=== PATIENT | female | born 1995 | race Asian ===

== ENCOUNTER 2017-11-27 00:09 | Emergency (ER) | payer OTHER ==
[~2017-11-27] VITALS: Ht 162.6 cm; Wt 57.8 kg
[~2017-11-27 00:09] MED LIST: DIPH25CA5 PO; EPP3/2 IM
[2017-11-27 00:21] VITALS: TEMP 36.4; Ht 162.6 cm; Wt 57.8 kg
--- NOTE | 2017-11-27 00:49 | EMERGENCY ROOM VISIT NOTE ---
History Report prepared by Leora: Anthony Henderson Under the Supervision of: Dr. Saundra Go D.O. First contact with patient: 00:31 Chief Complaint: URINARY SYMPTOMS Stated Complaint: VAGINAL BLEEDING,CONSTANT NEED TO USE BATHROOM Nursing Triage Summary: Patient reports blood in her urine since Saturday with pressure and frequency. History of Present Illness The patient is a 22 year old female who presents to the Emergency Room with complaints of persistent painful urination beginning two days ago. The patient states that she also started having blood in her urine today, but she notes that she does not have her period. She notes that she feels as though her bladder is inflamed. She also complains of an increased urgency of urination. She denies any leg cramping/swelling, nausea, vomiting, fever, chills, and back pain. She reports that she does not have any chronic problems and does not have a history of UTIs. The patient states that she does not believe that she is . She notes that her last period was a week and a half ago. Source of History: patient Onset: two days ago Position: other (urethra) Quality: other (painful urination) Timing: other (persistent) Associated Symptoms: No fevers, No chills, No nausea, No vomiting, No back pain Note: The patient also complains of blood in her urine and of an increased urgency of urination. She also denies any leg cramping/swelling. Review of Systems See HPI for pertinent positives & negatives. A total of 10 systems reviewed and were otherwise negative. Past Medical & Surgical Medical Problems: (1) No chronic problems Family History No pertinent family history stated. Social History Smoking Status: Never Smoker Drug Use: none Housing Status: lives with roommate Occupation Status: [email or web address] student Current/Historical Medications Scheduled Nitrofurantoin Monohyd Macro (Macrobid), 100 MG PO BID Phenazopyridine Hcl (Pyridium), 1 TAB PO TID Scheduled PRN Diphenhydramine Hcl (Benadryl), 25 MG PO Q4H PRN for Allergic Reaction Allergies Coded Allergies: Benzoyl Peroxide (Verified Allergy, Intermediate, facial swelling, 11/27/17 ) Physical Exam Vital Signs Date Time Temp Pulse Resp B/P (MAP) Pulse Ox O2 Delivery O2 Flow Rate FiO2 11/27/17 02:02 86 18 118/65 99 11/27/17 00:21 36.4 81 20 118/79 100 Room Air Physical Exam HEENT: Head - normocephalic and atraumatic Pupils are equal, round, and reactive to light. Extraocular eye muscles are intact, and sclera are anicteric. Nose - moist nasal mucosa without discharge. Mouth - moist buccal mucosa. Oropharynx is nonerythematous and there is no tonsillar exudate or edema noted. Neck: Supple; no JVD, nuchal rigidity, cervical lymphadenopathy. Heart: Regular rate and rhythm. There is a normal S1 and S2 with no murmurs, clicks, or gallops appreciated. Lungs: Clear to auscultation bilaterally with no wheezes, rales, or rhonchi. Abdomen: Soft, nondistended, with good bowel sounds. There are no palpable pulsatile masses or hepatosplenomegaly. There is no guarding, rigidity, or rebound noted. Tenderness to palpation in the suprapubic region. Extremities: No evidence of cyanosis, clubbing, or edema. There are easily palpable peripheral pulses. Skin: warm and dry with good turgor and no rashes. Medical Decision & Procedures Laboratory Results Test 11/27/17 00:50 Urine Color YELLOW Urine Appearance CLOUDY (CLEAR) Urine pH 6.0 (4.5-7.5) Urine Specific [place] 1.023 (1.000-1.030) Urine Protein 2+ (NEG) Urine Glucose (UA) NEG (NEG) Urine Ketones TRACE (NEG) Urine Occult Blood 3+ (NEG) Urine Nitrite NEG (NEG) Urine Bilirubin NEG (NEG) Urine Urobilinogen NEG (NEG) Urine Leukocyte Esterase LARGE (NEG) Urine WBC (Auto) >30 /hpf (0-5) Urine RBC (Auto) >30 /hpf (0-4) Urine Hyaline Casts (Auto) 1-5 /lpf (0-5) Urine Epithelial Cells (Auto) 10-20 /lpf (0-5) Urine Bacteria (Auto) NEG (NEG) Laboratory results per my review. Medications Administered Medications (Trade) Dose Ordered Sig/Edgardo Route Start Time Stop Time Status Last Admin Dose Admin Phenazopyridine HCl (Pyridium Tab) 200 mg NOW STAT PO 11/27/17 01:47 11/27/17 01:49 DC 11/27/17 01:59 200 MG Nitrofurantoin (Macrobid Homepack 100MG) 1 homepack STK-MED ONCE .ROUTE 11/27/17 01:55 11/27/17 01:56 DC 11/27/17 01:59 1 HOMEPACK Procedure Medications Administered: Pyridium Tab 200mg PO, Nitrofurantoin 1 homepack PO, and Nitrofurantoin Macrocrystals 100mg PO ED Course 0042: Past medical records reviewed. The patient was evaluated in room B5. A complete history and physical exam was performed. A urine specimen was obtained. 0147: Pyridium Tab 200mg PO to take at home 0155: Nitrofurantoin 1 homepack PO 0137: I reevaluated and updated the patient. 0202: Upon reevaluation, the patient is stable. I discussed findings and results with her. She verbalized agreement of the treatment plan. The patient was discharged home. Medical Decision The patient is a 22 year old female who presents to the Emergency Room with complaints of persistent painful urination beginning two days ago. Differential diagnoses include: cystitis, pyelonephritis, UTI, and vaginal bleeding. Lab Results Show: Urine shows: trace ketones, 3+ blood, large leukocyte esterase, >30 RBCs, >30 WBCs, and negative bacteria. This is a 22-year-old female patient presents to the emergency department with urinary frequency, urgency and significant hematuria. Urinalysis is consistent with a urinary tract infection. Her presentation is consistent with hemorrhagic cystitis. The patient will take Pyridium over the next 2 days and Macrobid over the next 5 days. Her urine was sent for culture. The patient was encouraged to return to the emergency department if she developed worsening symptoms such as flank pain, vomiting, nausea, or fevers Medication Reconcilliation Current Medication List: was personally reviewed by me Blood Pressure Screening Patient's blood pressure: Normal blood pressure Blood pressure disposition: Did not require urgent referral Impression Primary Impression: Hemorrhagic cystitis Scribe Attestation The scribe's documentation has been prepared under my direction and personally reviewed by me in its entirety. I confirm that the note above accurately reflects all work, treatment, procedures, and medical decision making performed by me. Departure Information Dispostion Home / Self-Care Prescriptions Nitrofurantoin Monohyd Macro (MACROBID) 100 Mg Cap 100 MG PO BID, #9 CAP Prov: Saundra Go D.O. 11/27/17 Phenazopyridine Hcl (PYRIDIUM) 200 Mg Tab 1 TAB PO TID for 2 Days, #5 TAB Prov: Saundra Go D.O. 11/27/17 Referrals No Doctor, Assigned (PCP) Forms HOME CARE DOCUMENTATION FORM, IMPORTANT VISIT INFORMATION Patient Instructions My [facility] Additional Instructions Rest. take plenty of clear liquids Macrobid - 1 tab. every 12 hours for 5 days pyridium - 1 tab. every 8 hours for 2 days Return to the ER if you develop a fever, vomiting or worsening symptoms
[2017-11-27] MEDS ORDERED: PHENAZOPYRIDINE HCL 200 MG TAB PO STA (01:47)
[2017-11-27] MEDS ORDERED: NITR1CAP16 PO (01:51)
[2017-11-27] MEDS ORDERED: PHEN-775 PO (01:51)
[2017-11-27] MEDS ORDERED: MACROBID 100MG HOME PACK 1 EA VIAL ONE (01:55)
[2017-11-27] MEDS ORDERED: NITROFURANTOIN MONOHYDRATE 100 MG CAP PO ONE (02:00)
[2017-11-27 02:02] VITALS: BP 118/65; PULSE 86; O2SAT 99
== END 2017-11-27 01:59 | disposition home or self-care (01) ==
LOC: C.EDB 00:11
DX: N30.90 Cystitis, unspecified without hematuria (principal)

== ENCOUNTER 2017-12-01 12:52 | Emergency (ER) | payer OTHER ==
[~2017-12-01] VITALS: Ht 162.6 cm; Wt 57.8 kg
[~2017-12-01 12:52] MED LIST changes: -EPP3/2 IM; +NITR1CAP16 PO
[2017-12-01 13:05] VITALS: TEMP 37; Ht 162.6 cm; Wt 57.8 kg
[2017-12-01] MEDS ORDERED: BCPILLS PO (13:26)
[2017-12-01] MEDS ORDERED: CEPHALEXIN MONOHYDRATE 250 MG CAP PO ONE (13:45)
[2017-12-01] MEDS ORDERED: DEXAMETHASONE SOD INJ 4 MG/ML VIAL PO ONE (13:45)
--- NOTE | 2017-12-01 13:50 | EMERGENCY ROOM VISIT NOTE ---
History First contact with patient: 13:20 Chief Complaint: THROAT PAIN/INJURY Stated Complaint: RASH,THROAT HURTS,THROAT SWOLLEN History of Present Illness The patient is a 22 year old female who presents to the Emergency Room with complaints of an itchy rash that started yesterday. The patient also is complaining of a sore throat and difficulty swallowing that started yesterday. She denies any fever or chills. No shortness of breath. She tried 1 tab of Benadryl last night with no relief of her symptoms. The patient reports having very sensitive skin. She denies any new soaps, lotions or detergents. She is currently taking Macrobid for a recent diagnosis of a UTI. Her urinary symptoms have improved. Review of Systems 10 system review performed and negative unless noted in HPI or below Past Medical/Surgical History Medical Problems: (1) No chronic problems Social History Smoking Status: Never Smoker Drug Use: none Housing Status: lives with roommate Occupation Status: [employer] student Current/Historical Medications Scheduled Control Pills ( Control Pills), 1 TAB PO DAILY Cephalexin Monohydrate (Keflex), 500 MG PO QID Nitrofurantoin Monohyd Macro (Macrobid), 100 MG PO BID Physical Exam Vital Signs Date Time Temp Pulse Resp B/P (MAP) Pulse Ox O2 Delivery O2 Flow Rate FiO2 12/01/17 14:30 84 18 102/63 98 12/01/17 13:08 99 Room Air 12/01/17 13:05 37.0 90 16 102/61 98 Room Air Physical Exam VITALS: Vitals are noted on the nurse's note and reviewed by myself. Vital signs stable. GENERAL: 22-year-old female, in no acute distress, nondiaphoretic, well- developed well-nourished. SKIN: Blotchy, erythematous, slightly raised lesions noted to the right thigh, lateral aspect of the left knee and intermittently on the trunk. No involvement of the palms or soles. HEAD: Normocephalic atraumatic. EYES: . Conjunctivae without injection, sclerae without icterus. Extraocular movements intact. NOSE: No rhinorrhea noted. MOUTH: Mucous membranes moist. Tonsils are significantly enlarged, erythematous and with white exudate bilaterally. Uvula is midline. No involvement of the soft palate. No trismus. NECK: Supple without nuchal rigidity. Lymphadenopathy noted in the anterior cervical chain bilaterally.. Cervical spine is nontender. No JVD. HEART: Regular rate and rhythm without murmurs gallops or rubs. LUNGS: Clear to auscultation bilaterally without wheezes, rales or rhonchi. No accessory muscle use. ABDOMEN: Positive bowel sounds x 4.Soft, nontender, without organomegaly. No guarding or rebound tenderness. MUSCULOSKELETAL: No muscle atrophy, erythema, or edema noted. Full range of motion in all extremities. No tenderness to palpation. Normal gait. Strength 5/5 throughout. NEURO: Patient was alert and oriented to person place and time. Normal sensation to touch. No focal neurological deficits. Medical Decision & Procedures Medications Administered Medications (Trade) Dose Ordered Sig/Edgardo Route Start Time Stop Time Status Last Admin Dose Admin Cephalexin Monohydrate (Keflex Cap) 500 mg NOW ONCE PO 12/01/17 13:45 12/01/17 13:46 DC 12/01/17 13:44 500 MG Dexamethasone Sodium Phosphate (Decadron Inj) 10 mg NOW ONCE PO 12/01/17 13:45 12/01/17 13:46 DC 12/01/17 13:45 10 MG ED Course The patient was seen and examined She was given 1 dose of Keflex She was also medicated with Decadron 10 mg p.o. A strep culture was reviewed The patient was reassessed and resting comfortably. We discussed her workup. She voiced understanding, was comfortable being discharged home. Discharge instructions were reviewed, and she was discharged in good condition Medical Decision Differential diagnosis: Bacterial versus viral tonsillitis such as strep or mono , allergic reaction to antibiotic versus other source, anaphylaxis, angioedema This patient is a 22-year-old female that presents to the emergency department with an itchy rash and throat pain. On exam, she has an allergic reaction. It is minor. No signs of angioedema or anaphylaxis. The patient's tonsils are significantly inflamed with exudate. She is currently taking Macrobid for UTI. It is unclear if her rash is due to the Macrobid or something else; therefore , I will discontinue the Macrobid and start her on Keflex. This should be adequate coverage for her UTI (which is growing pansensitive E. coli) and strep pharyngitis. The patient was encouraged to take Benadryl. She was treated with Decadron in the emergency department, which should help the rash and throat pain. She will follow-up with [facility] next week for recheck, was cautioned on signs for which to return to the emergency department. This chart was completed in part utilizing [employer] Speech Voice Recognition software. Attempts were made to minimize the grammatical errors, random word insertions, pronoun errors and incomplete sentences. Any formal questions or concerns about the content, text or information contained within the body of this dictation should be directly addressed to the provider for clarification. Medication Reconcilliation Current Medication List: was personally reviewed by me Blood Pressure Screening Patient's blood pressure: Normal blood pressure Impression Primary Impression: Acute bacterial tonsillitis Departure Information Dispostion Home / Self-Care Condition GOOD Prescriptions Cephalexin Monohydrate (Keflex) 500 Mg Cap 500 MG PO QID for 7 Days, #28 CAP Prov: Shira Gates PA-C 12/01/17 Referrals No Doctor, Assigned (PCP) Patient Instructions My [facility] Additional Instructions You were seen in the emergency department for a rash and throat pain. Please discontinue Macrobid Please start and finish the ENTIRE course of Keflex. You received steroids in the emergency department, which will help with the throat pain and a rash over the next several days Please take Benadryl 2 tabs every 8 hours as needed for additional rash/itching relief Avoid getting overheated as discussed. This will make the rash worse. Regarding the throat pain, Ibuprofen 600 mg and/or Tylenol 1000 mg every 8 hours for pain. You may also alternate these medications for more effective pain relief: Ibuprofen --4 HRS--> Tylenol --4 HRS--> ibuprofen --4 HRS--> Tylenol .... Try to stay well-hydrated. Get plenty of rest. Follow-up with [facility] next week for recheck Do not hesitate to return to the ED with any new, worsening or concerning symptoms; especially, difficulty breathing, swelling of the face, lips, tongue or inability to swallow School Instructions Return To School: 1 day
[2017-12-01] MEDS ORDERED: CEPH500C PO (14:20)
[2017-12-01 14:30] VITALS: BP 102/63; PULSE 84; O2SAT 98
== END 2017-12-01 14:31 | disposition home or self-care (01) ==
LOC: C.EDB 12:52 → C.EDD 14:31
DX: J03.90 Acute tonsillitis, unspecified (principal); Z79.3 Long term (current) use of hormonal contraceptives

== ENCOUNTER 2017-12-03 17:29 | Emergency (ER) | payer OTHER ==
[~2017-12-03] VITALS: Ht 162.6 cm; Wt 58.0 kg
[~2017-12-03 17:29] MED LIST changes: +BCPILLS PO; +CEPH500C PO; -DIPH25CA5 PO
[2017-12-03 17:33] VITALS: TEMP 37.1; Ht 162.6 cm; Wt 58.0 kg
[2017-12-03] MEDS ORDERED: METHYLPREDNISOLONE 125 MG VIAL IV STA (17:47)
[2017-12-03] MEDS ORDERED: RANITIDINE HCL 50 MG/100 ML D5W IV STA (17:47)
[2017-12-03] MEDS ORDERED: DiphenhydrAMINE HCL 50 MG/ML VIAL IV STA ×2 (17:47→19:07)
[2017-12-03] MEDS ORDERED: SODIUM CHLORIDE 0.9% 1000ML 1,000 ML IV ONE (18:00)
[2017-12-03 18:25] LABS: BASO % 0.2 %; BASO ABS # 0.02 K/uL (0-0.2); EOS % 2.2 %; HEMATOCRIT 38.1 % (37-47); HEMOGLOBIN 12.3 g/dL (12.0-16.0); IG# 0.02 K/uL (0.00-0.02); LYMPH % 25.4 %; LYMPH ABS # 2.35 K/uL (1.2-3.4); MEAN CELL VOLUME 90.3 fL (80-100); MEAN CORPUSCULAR HEMOGLOBIN 29.1 pg (25-34); MEAN CORPUSCULAR HGB CONC 32.3 g/dl (32-36); MEAN PLATELET VOLUME 10.7 fL (7.4-10.4); MONO % 6.9 %; MONO ABS # 0.64 K/uL (0.11-0.59); NEUT % 65.1 %; NEUT ABS # 6.01 K/uL (1.4-6.5); PLATELET COUNT 234 K/uL (130-400); RED CELL DISTRIBUTION WIDTH CV 12.9 % (11.5-14.5); RED CELL DISTRIBUTION WIDTH SD 42.6 fL (36.4-46.3); WHITE BLOOD COUNT 9.24 K/uL (4.8-10.8)
[2017-12-03 18:43] LABS: ALBUMIN 3.9 gm/dl (3.4-5.0); CALCIUM 8.9 mg/dl (8.5-10.1); CREATININE 0.63 mg/dl (0.60-1.20); POTASSIUM 3.4 mmol/L (3.5-5.1); TOTAL PROTEIN 7.5 gm/dl (6.4-8.2)
--- NOTE | 2017-12-03 18:58 | EMERGENCY ROOM VISIT NOTE ---
History First contact with patient: 17:37 Chief Complaint: ALLERGIC REACTION Stated Complaint: HIVES SWELLING SORE THROAT Nursing Triage Summary: patient c/o ongoing allergic reaction with hives, states "i think its from an abx I was taking for a UTI" History of Present Illness The patient is a 22 year old female who presents to the Emergency Room with complaints of an itchy rash that came back last night. It is mainly on her neck , hands and her ears. She thinks her ears feel swollen. She denies any difficulty breathing. The patient was seen in the emergency department a few days ago. She was being treated for UTI with Macrobid. That was changed to Keflex due to the fact that it was thought that she may be having an allergic reaction to the Macrobid, in addition to the fact that she was complaining of a sore throat. She has been taking the Keflex as prescribed. She does still have a sore throat. She denies any fever or chills. She has not taken anything [id number] for pain. She does have a history of sensitive skin. She denies any no new soaps, lotions or detergents. Review of Systems 10 system review performed and negative unless noted in HPI or below Past Medical/Surgical History Medical Problems: (1) No chronic problems Social History Smoking Status: Never Smoker Drug Use: none Housing Status: lives with roommate Occupation Status: [employer] student Current/Historical Medications Scheduled Control Pills ( Control Pills), 1 TAB PO DAILY Cephalexin Monohydrate (Keflex), 500 MG PO QID Methylprednisolone (Medrol Dosepak), 0 PO DAILY Ranitidine (Zantac), 150 MG PO BID Scheduled PRN Hydroxyzine Pamoate (Vistaril), 1 TAB PO Q6H PRN for Itching Physical Exam Vital Signs Date Time Temp Pulse Resp B/P (MAP) Pulse Ox O2 Delivery O2 Flow Rate FiO2 12/03/17 19:22 70 16 106/77 98 Room Air 12/03/17 17:36 97 Room Air 12/03/17 17:33 37.1 93 20 99/65 96 Room Air Physical Exam VITALS: Vitals are noted on the nurse's note and reviewed by myself. Vital signs stable. GENERAL: 22-year-old female, in no acute distress, nondiaphoretic, well- developed well-nourished. SKIN: Slightly raised, blanching, erythematous blotchy lesions noted to the dorsum of the hands bilaterally, left lateral knee and the nape of the neck. HEAD: Normocephalic atraumatic. EARS: The pinna of the ears is erythematous with mild edema bilaterally. EYES: Conjunctivae without injection, sclerae without icterus. Extraocular movements intact. MOUTH: Mucous membranes moist. Tonsils are mildly enlarged, erythematous with white exudate bilaterally.. No trismus noted. The patient is able to open her mouth. Uvula midline. Airway patent. Tongue does not deviate. NECK: Supple without nuchal rigidity. Lymphadenopathy in anterior cervical chain bilaterally. Cervical spine is nontender. No JVD. HEART: Regular rate and rhythm without murmurs gallops or rubs. LUNGS: Clear to auscultation bilaterally without wheezes, rales or rhonchi. No accessory muscle use. ABDOMEN: Positive bowel sounds x 4.Soft, nontender, without organomegaly. No guarding or rebound tenderness. MUSCULOSKELETAL: No muscle atrophy, erythema, or edema noted. Strength 5/5 throughout. NEURO: Patient was alert and oriented to person place and time. Normal sensation to touch. No focal neurological deficits. Medical Decision & Procedures Laboratory Results 12/03/17 18:00 Red Blood Count 4.22, Mean Corpuscular Volume 90.3, Mean Corpuscular Hemoglobin 29.1, Mean Corpuscular Hemoglobin Concent 32.3, Mean Platelet Volume 10.7, Neutrophils (%) (Auto) 65.1, Lymphocytes (%) (Auto) 25.4, Monocytes (%) (Auto) 6.9, Eosinophils (%) (Auto) 2.2, Basophils (%) (Auto) 0.2, Neutrophils # (Auto) 6.01, Lymphocytes # (Auto) 2.35, Monocytes # (Auto) 0.64, Eosinophils # (Auto) 0.20, Basophils # (Auto) 0.02 12/03/17 18:00 Test 12/03/17 18:00 White Blood Count 9.24 K/uL (4.8-10.8) Red Blood Count 4.22 M/uL (4.2-5.4) Hemoglobin 12.3 g/dL (12.0-16.0) Hematocrit 38.1 % (37-47) Mean Corpuscular Volume 90.3 fL (80-100) Mean Corpuscular Hemoglobin 29.1 pg (25-34) Mean Corpuscular Hemoglobin Concent 32.3 g/dl (32-36) Platelet Count 234 K/uL (130-400) Mean Platelet Volume 10.7 fL (7.4-10.4) Neutrophils (%) (Auto) 65.1 % Lymphocytes (%) (Auto) 25.4 % Monocytes (%) (Auto) 6.9 % Eosinophils (%) (Auto) 2.2 % Basophils (%) (Auto) 0.2 % Neutrophils # (Auto) 6.01 K/uL (1.4-6.5) Lymphocytes # (Auto) 2.35 K/uL (1.2-3.4) Monocytes # (Auto) 0.64 K/uL (0.11-0.59) Eosinophils # (Auto) 0.20 K/uL (0-0.5) Basophils # (Auto) 0.02 K/uL (0-0.2) RDW Standard Deviation 42.6 fL (36.4-46.3) RDW Coefficient of Variation 12.9 % (11.5-14.5) Immature Granulocyte % (Auto) 0.2 % Immature Granulocyte # (Auto) 0.02 K/uL (0.00-0.02) Anion Gap 10.0 mmol/L (3-11) Est Creatinine Clear Calc Drug Dose 122.1 ml/min Estimated GFR () 148.6 Estimated GFR (Non- 128.2 BUN/Creatinine Ratio 21.7 (10-20) Calcium Level 8.9 mg/dl (8.5-10.1) Total Bilirubin 0.3 mg/dl (0.2-1) Aspartate Amino Transf (AST/SGOT) 12 U/L (15-37) Alanine Aminotransferase (ALT/SGPT) 17 U/L (12-78) Alkaline Phosphatase 53 U/L (45-117) Total Protein 7.5 gm/dl (6.4-8.2) Albumin 3.9 gm/dl (3.4-5.0) Globulin 3.6 gm/dl (2.5-4.0) Albumin/Globulin Ratio 1.1 (0.9-2) Monoscreen NEG (NEG) Medications Administered Medications (Trade) Dose Ordered Sig/Edgardo Route Start Time Stop Time Status Last Admin Dose Admin Methylprednisolone Sodium Succinate (Solu-Medrol IV) 125 mg NOW STAT IV 12/03/17 17:47 12/03/17 17:50 DC 12/03/17 18:13 125 MG Diphenhydramine HCl (Benadryl Inj) 25 mg NOW STAT IV 12/03/17 17:47 12/03/17 17:50 DC 12/03/17 18:14 25 MG Ranitidine HCl (zANTac IV) 50 mg NOW STAT IV 12/03/17 17:47 12/03/17 17:50 DC 12/03/17 18:13 50 MG Sodium Chloride 1,000 ml @ 999 mls/hr Q1H1M ONCE IV 12/03/17 18:00 12/03/17 19:00 DC 12/03/17 18:13 999 MLS/HR Diphenhydramine HCl (Benadryl Inj) 25 mg NOW STAT IV 12/03/17 19:07 12/03/17 19:08 DC 12/03/17 19:14 25 MG Triamcinolone Acetonide (Aristocort 0.1% Oint) 1 appln ONE STAT EXT 12/03/17 19:48 12/03/17 19:50 DC 12/03/17 20:01 1 APPLN Hydroxyzine HCl (Vistaril Tab) 25 mg NOW STAT PO 12/03/17 19:48 12/03/17 19:50 DC 12/03/17 20:00 25 MG ED Course Patient was seen and examined Vital signs including blood pressure were reviewed medications list was verified with patient Labs were obtained, and a saline lock was established The patient was medicated with Zantac, Benadryl, Solu-Medrol and hydrated with 1 L of saline as noted above She was monitored for 2 hours. Upon reevaluation, the patient was still complaining of itching. She was given a second dose of Benadryl. She was also ordered 1 dose of Vistaril and triamcinolone. We discussed her workup. She voiced understanding, was comfortable being discharged home. I reviewed discharge instructions the patient. They voiced understanding and had no further questions. Medical Decision Differential diagnosis: Viral versus bacterial tonsillitis, allergic reaction, anaphylaxis, angioedema, other dermatitis, among others were considered This patient is a 22-year-old female that returns to the emergency department complaining of an itchy rash on her hands in the nape of her neck that came back. The patient was seen here several days ago as noted in the HPI. On exam , she has a mild allergic reaction to the dorsum of her hands and neck. She however did not appear to be in significant distress. She was not scratching. The patient is currently being treated with Keflex for tonsillitis. I do not believe this is a source of her allergic reaction. The patient was treated with medications as noted above. Her labs are unremarkable. I believe she is stable to be discharged home. She will be sent home on a course of steroids, Vistaril and Zantac. She was also given a topical agent to use. She will follow-up with [facility] if there is no improvement. She was cautioned on signs for which to return to the emergency department. This chart was completed in part utilizing [employer] Speech Voice Recognition software. Attempts were made to minimize the grammatical errors, random word insertions, pronoun errors and incomplete sentences. Any formal questions or concerns about the content, text or information contained within the body of this dictation should be directly addressed to the provider for clarification. Impression Primary Impression: Allergic reaction Departure Information Dispostion Home / Self-Care Condition GOOD Prescriptions Methylprednisolone (MEDROL DOSEPAK) 4 Mg Tobi 0 PO DAILY, #1 PKT Prov: Shira Gates PA-C 12/03/17 Hydroxyzine Pamoate (VISTARIL) 50 Mg Cap 1 TAB PO Q6H Y for Itching, #10 CAP Prov: Shira Gates PA-C 12/03/17 Ranitidine (Zantac) 150 Mg Tab 150 MG PO BID for 5 Days, #10 TAB Prov: Shira Gates PA-C 12/03/17 Referrals [facility] (PCP) Patient Instructions My [facility] Additional Instructions Please continue Keflex as prescribed Please take the Medrol Dosepak, Zantac and Vistaril as prescribed You may also continue Benadryl 25 mg every 6 hours for additional itch relief. Please use the topical ointment to the affected areas 3 times daily. Do not exceed this treatment for longer than 2 weeks Follow-up with [facility] or a trauma nurse if there is no improvement in the next 1-2 weeks Return to the emergency department with any new or concerning symptoms It was a pleasure participating in your care today
[2017-12-03] MEDS ORDERED: TRIAMCINOLONE ACET 0.1% OINT 80 GM TUBE EXT STA (19:48)
[2017-12-03] MEDS ORDERED: hydrOXYzine HCL 25 MG TAB PO STA (19:48)
[2017-12-03] MEDS ORDERED: HYDR50CA2 PO (19:53)
[2017-12-03] MEDS ORDERED: METH4PAK PO (19:53)
[2017-12-03] MEDS ORDERED: RANI150T85 PO (19:53)
[2017-12-03 20:11] VITALS: BP 108/75; PULSE 78; O2SAT 98
== END 2017-12-03 20:10 | disposition home or self-care (01) ==
LOC: C.EDB 17:30 → C.EDD 20:10
DX: T78.40XA Allergy, unspecified, initial encounter (principal); X58.XXXA Exposure to other specified factors, initial encounter; Z79.3 Long term (current) use of hormonal contraceptives; Z79.899 Other long term (current) drug therapy